=== PATIENT | male | born 1950 | race Asian ===

== ENCOUNTER 2018-08-13 14:54 | Emergency (ER) | payer BC ==
[~2018-08-13] VITALS: Ht 172.7 cm; Wt 81.6 kg
[2018-08-13 14:59] VITALS: BP 132/71
[2018-08-13] MEDS ORDERED: Ketorolac 30mg Inj IV ONE (15:00)
--- NOTE | 2018-08-13 15:00 | NUR ---
ED Nurse Note: PT BROUGHT IN BY AMBULANCE DUE TO LLQ ABD. PAIN SINCE THIS MORNING. PT WAS SEEN AT [facility] TODAY AND WAS GIVEN PRESCRIPTIONS. PT STATES HIS LAST BOWLE MOVEMENT WAS YESTERDAY AFTERNOON BUT SCANTY. PT IS AAO X4, AMBULATORY. VSS.
--- NOTE | 2018-08-13 15:05 | NUR ---
HAND-OFF: Report given to
[2018-08-13] MEDS ORDERED: ZOFRAN4 MG ORAL (15:18)
[2018-08-13] MEDS ORDERED: ASPIRIN EC81 MG ORAL (15:18)
[2018-08-13] MEDS ORDERED: ATORVASTATIN CA80 MG ORAL (15:18)
[2018-08-13] MEDS ORDERED: IBUPROFEN600 MG ORAL (15:18)
[2018-08-13 15:33] LABS: BASOPHILS % (AUTO) 0.4 % (0.0-2.0); HEMATOCRIT 41.4 % (42.0-52.0); HEMOGLOBIN 14.2 G/DL (14.2-18.0); LYMPHOCYTES % (AUTO) 9.8 % (20.0-45.0); MEAN CORPUSCULAR VOLUME 89 FL (80-99); NEUTROPHILS % (AUTO) 83.8 % (45.0-75.0); PLATELET COUNT 164 K/UL (150-450); RED BLOOD COUNT 4.65 M/UL (4.70-6.10); RED CELL DISTRIBUTION WIDTH 10.7 % (11.6-14.8); WHITE BLOOD COUNT 9.8 K/UL (4.8-10.8)
[2018-08-13 15:50] LABS: ANION GAP 7 mmol/L (5-15); BLOOD UREA NITROGEN 18 mg/dL (7-18); CALCIUM 8.5 MG/DL (8.5-10.1); CARBON DIOXIDE 28 MMOL/L (21-32); CHLORIDE 100 MMOL/L (98-107); CREATININE 1.2 MG/DL (0.55-1.30); POTASSIUM 3.7 MMOL/L (3.5-5.1); SODIUM 135 MMOL/L (136-145)
[2018-08-13 15:54] LABS: ALANINE AMINOTRANSFERASE 59 U/L (12-78); ALBUMIN 3.7 G/DL (3.4-5.0); ALBUMIN/GLOBULIN RATIO 1.2 (1.0-2.7); ALKALINE PHOSPHATASE 66 U/L (46-116); ASPARTATE AMINO TRANSFERASE 67 U/L (15-37); BILIRUBIN,TOTAL 0.9 MG/DL (0.2-1.0)
--- NOTE | 2018-08-13 16:18 | Emergency Room Report ---
History of Present Illness General Chief Complaint: Abdominal Pain Source: Patient, Medical Record Present Illness HPI Patient presents with complaints of left lower abdominal pain some radiation to the upper abdominal area reports that he was in a different hospital recently with similar pain It had improved however was unable to get his medications and the pain has now returned patient reports that many years ago he had a similar episode with nausea vomiting had gone to an initial hospital and after return visit was found to have a heart attack Denies any dysuria frequency Patient does feel that he is constipated Allergies: Coded Allergies: IODINE (Verified Allergy, Unknown, 08/13/18) Patient History Past Medical History: see triage record Pertinent Family History: none Reviewed Nursing Documentation: PMH: Agreed; PSxH: Agreed Nursing Documentation-PMH Past Medical History: No History, Except For Hx Cardiac Problems: Yes - Stent in 2008 Review of Systems All Other Systems: negative except mentioned in HPI Physical Exam Vital Signs Date Time Temp Pulse Resp B/P (MAP) Pulse Ox O2 Delivery O2 Flow Rate FiO2 08/13/18 14:50 97.9 77 20 120/73 (89) 100 Room Air Sp02 EP Interpretation: reviewed, normal General Appearance: well appearing, no apparent distress Head: normocephalic, atraumatic Eyes: bilateral eye PERRL, bilateral eye EOMI ENT: hearing grossly normal, normal pharynx, TMs + canals normal, uvula midline Neck: full range of motion, supple, no meningismus, no bony tend Respiratory: lungs clear, normal breath sounds, no rhonchi, no respiratory distress, no retraction, no accessory muscle use Cardiovascular #1: normal peripheral pulses, regular rate, rhythm, no edema, no gallop, no JVD, no murmur Gastrointestinal: normal bowel sounds, non tender - Likely points to the left lower abdominal area, soft, no mass, no organomegaly, non-distended, no guarding , no hernia, no pulsatile mass, no rebound Genitourinary: no CVA tenderness Musculoskeletal: normal inspection Neurologic: oriented x3, responsive, machine i coremaker III-XII nml as tested, motor strength/ tone normal, sensory intact Psychiatric: mood/affect normal Skin: normal color, no rash, warm/dry, palpation normal Lymphatic: normal inspection, no adenopathy Medical Decision Making Labs Test 08/13/18 15:10 08/13/18 16:40 White Blood Count 9.8 K/UL (4.8-10.8) Red Blood Count 4.65 M/UL (4.70-6.10) Hemoglobin 14.2 G/DL (14.2-18.0) Hematocrit 41.4 % (42.0-52.0) Mean Corpuscular Volume 89 FL (80-99) Mean Corpuscular Hemoglobin 30.4 PG (27.0-31.0) Mean Corpuscular Hemoglobin Concent 34.2 G/DL (32.0-36.0) Red Cell Distribution Width 10.7 % (11.6-14.8) Platelet Count 164 K/UL (150-450) Mean Platelet Volume 6.4 FL (6.5-10.1) Neutrophils (%) (Auto) 83.8 % (45.0-75.0) Lymphocytes (%) (Auto) 9.8 % (20.0-45.0) Monocytes (%) (Auto) 6.0 % (1.0-10.0) Eosinophils (%) (Auto) 0.0 % (0.0-3.0) Basophils (%) (Auto) 0.4 % (0.0-2.0) Sodium Level 135 MMOL/L (136-145) Potassium Level 3.7 MMOL/L (3.5-5.1) Chloride Level 100 MMOL/L (98-107) Carbon Dioxide Level 28 MMOL/L (21-32) Anion Gap 7 mmol/L (5-15) Blood Urea Nitrogen 18 mg/dL (7-18) Creatinine 1.2 MG/DL (0.55-1.30) Estimat Glomerular Filtration Rate > 60 mL/min (>60) Glucose Level 129 MG/DL (74-106) Calcium Level 8.5 MG/DL (8.5-10.1) Total Bilirubin 0.9 MG/DL (0.2-1.0) Aspartate Amino Transf (AST/SGOT) 67 U/L (15-37) Alanine Aminotransferase (ALT/SGPT) 59 U/L (12-78) Alkaline Phosphatase 66 U/L (46-116) Total Protein 6.8 G/DL (6.4-8.2) Albumin 3.7 G/DL (3.4-5.0) Globulin 3.1 g/dL Albumin/Globulin Ratio 1.2 (1.0-2.7) Lipase 88 U/L (73-393) Urine Color Pale yellow Urine Appearance Clear Urine pH 6 (4.5-8.0) Urine Specific Nichols 1.015 (1.005-1.035) Urine Protein 2+ (NEGATIVE) Urine Glucose (UA) Negative (NEGATIVE) Urine Ketones 1+ (NEGATIVE) Urine Blood 2+ (NEGATIVE) Urine Nitrite Negative (NEGATIVE) Urine Bilirubin Negative (NEGATIVE) Urine Urobilinogen Normal MG/DL (0.0-1.0) Urine Leukocyte Esterase Negative (NEGATIVE) Urine RBC 0-2 /HPF (0 - 0) Urine WBC 0 /HPF (0 - 0) Urine Squamous Epithelial Cells Occasional /LPF Urine Bacteria Occasional /HPF (NONE) Urine Mucus Few /LPF (NONE/OCC) CT/MRI/US Diagnostic Results CT/MRI/US Diagnostic Results : Impression ct abd pelvis: IMPRESSION: No acute findings. Atherosclerotic vascular disease. Mild thickening of the wall the urinary bladder. Correlate for cystitis. Last Vital Signs Date Time Temp Pulse Resp B/P (MAP) Pulse Ox O2 Delivery O2 Flow Rate FiO2 08/13/18 15:36 97.9 08/13/18 14:59 71 16 Room Air 08/13/18 14:59 132/71 100 Scripts Docusate Sodium* (COLACE*) 100 Mg Capsule 100 MG ORAL THREE TIMES A DAY, #12 CAP Prov: Agnes Bond DO 08/13/18 Famotidine (PEPCID AC) 20 Mg Tablet 20 MG PO DAILY, #12 TAB Prov: Agnes Bond DO 08/13/18 Referrals: [facility] (PCP) Agnes Bond DO Aug 13, 2018 16:18
--- NOTE | 2018-08-13 16:23 | Diagnostic Imaging Report ---
Indication: Abdominal pain Technique: Continuous helical transaxial imaging of the abdomen and pelvis was obtained from the lung bases to the pubic symphysis. No intravenous contrast was administered. Coronal 2-D reformats were also obtained. Automatic Exposure Control was utilized. Total Dose length Product (DLP): 508.[address] Dose Index Volume (CTDIvol): 9.94 mGy Comparison: none Findings: Bowel gas pattern is nonobstructive. The appendix is normal. No renal stones or hydronephrosis demonstrated. The gallbladder is unremarkable. There is a calcification in the liver which is nonspecific. No ascites demonstrated. Prostate calcification noted. Mild thickening of the urinary bladder wall demonstrated. IMPRESSION: No acute findings. Atherosclerotic vascular disease. Mild thickening of the wall the urinary bladder. Correlate for cystitis. The CT scanner at [facility] is accredited by the [employer] and the scans are performed using dose optimization techniques as appropriate to a performed exam including Automatic Exposure control.
[2018-08-13] MEDS ORDERED: COLACE100 MG ORAL (16:36)
[2018-08-13] MEDS ORDERED: PEPCID AC20 M2 PO (16:36)
[2018-08-13 17:15] VITALS: BP 122/72
[2018-08-13 17:28] LABS: APPEARANCE,URINE CLEAR; BILIRUBIN, URINE NEGATIVE (NEGATIVE); COLOR,URINE PALE YELLOW; GLUCOSE, URINE (UA) NEGATIVE (NEGATIVE); KETONES,URINE 1+ (NEGATIVE); LEUKOCYTE ESTERASE ,URINE NEGATIVE (NEGATIVE); NITRITE,URINE NEGATIVE (NEGATIVE); PH,URINE 6 (4.5-8.0); PROTEIN,URINE 2+ (NEGATIVE); UROBILINOGEN,URINE NORMAL MG/DL (0.0-1.0)
[2018-08-13 17:38] VITALS: BP 134/80
--- NOTE | 2018-08-13 17:39 | NUR ---
ER DISCHARGE NOTE: Patient is cleared to be discharged per ERMD, pt is aox4, on room air, with stable vital signs. pt was given dc and prescription instructions, pt was able to verbalize understanding, pt id band and iv site removed without complications. pt is able to ambulate with steady gait. pt took all belongings.
--- NOTE | 2018-08-14 15:27 | Cardiology Report ---
APPROVED REPORT EKG Measurement Heart [id number] Normal sinus rhythm Anteroseptal infarct, age undetermined Abnormal ECG
== END 2018-08-13 17:05 | disposition home or self-care (01) ==
LOC: EDBD 14:54 → EMR 15:15 → CANBEDREQ 16:35 → EMR 17:05
DX: R10.32 Left lower quadrant pain (principal); I25.2 Old myocardial infarction; Z95.0 Presence of cardiac pacemaker; Z91.041 Radiographic dye allergy status
CPT/HCPCS: 36415; 74176; 80053; 81003; 83690; 85025; 93005; 96361; 96374; 96375; 99284; J1885; J2405

== ENCOUNTER 2020-01-15 12:08 | Emergency (ER) | payer BC ==
[~2020-01-15] VITALS: Ht 175.3 cm; Wt 72.6 kg
[~2020-01-15 12:08] MED LIST: ASPIRIN EC81 MG ORAL; ATORVASTATIN CA80 MG ORAL; COLACE100 MG ORAL; IBUPROFEN600 MG ORAL; PEPCID AC20 M2 PO; ZOFRAN4 MG ORAL
--- NOTE | 2020-01-15 12:20 | NUR ---
came to er complaints of chest pain which radiates to left arm just like crushing hx of stent palcement
[2020-01-15] MEDS ORDERED: Heparin 5000 units/ml inj ONE (12:29)
[2020-01-15] MEDS ORDERED: Heparin 1000 units/ml 1ml Vial INJ ONE (12:30)
[2020-01-15] MEDS ORDERED: Morphine Sulfate 4mg/ml Inj (IV USE ONLY) IVP ONE (12:30)
[2020-01-15] MEDS ORDERED: Heparin 5000 units/ml inj SUBQ ONE (12:30)
[2020-01-15 12:32] VITALS: BP 130/80
--- NOTE | 2020-01-15 12:35 | NUR ---
meds given as orderd iv intact patient is to be transferd to [facility] er as stemi
[2020-01-15 12:38] VITALS: BP 139/92
[2020-01-15 12:38] LABS: BASOPHILS % (AUTO) 1.1 % (0.0-2.0); EOSINOPHILS % (AUTO) 1.1 % (0.0-3.0); HEMATOCRIT 47.4 % (42.0-52.0); HEMOGLOBIN 15.5 G/DL (14.2-18.0); LYMPHOCYTES % (AUTO) 42.9 % (20.0-45.0); MEAN CORPUSCULAR VOLUME 94 FL (80-99); MONOCYTES % (AUTO) 6.1 % (1.0-10.0); NEUTROPHILS % (AUTO) 48.9 % (45.0-75.0); PLATELET COUNT 219 K/UL (150-450); RED BLOOD COUNT 5.02 M/UL (4.70-6.10); RED CELL DISTRIBUTION WIDTH 11.9 % (11.6-14.8); WHITE BLOOD COUNT 6.1 K/UL (4.8-10.8)
--- NOTE | 2020-01-15 12:41 | Emergency Room Report ---
History of Present Illness General Chief Complaint: Chest Pain Source: Patient Present Illness HPI This patient states that about an hour prior to arrival he developed severe left-sided chest pain that is pressure-like. He does have a history of AK. He has 2 stents previously. The last one being 2 years ago. He states this was at [facility]. He currently is not taking any medications. He denies recent illness. Denies fever or chills. He denies cough or congestion. He states this feels exactly the same as his previous myocardial infarction. Allergies: Coded Allergies: IODINE (Verified Allergy, Unknown, 08/13/18) COVID-19 Screening Contact w/high risk pt: No Experienced COVID-19 symptoms?: No COVID-19 Testing performed ARCADE TECHNICIAN: No Patient History Past Medical History: see triage record, HTN, AK, CAD Past Surgical History: other - Stentsx2 Social History: Denies: smoking, alcohol use, drug use Reviewed Nursing Documentation: PMH: Agreed; PSxH: Agreed Nursing Documentation-PMH Hx Cardiac Problems: Yes - stentx 2 Review of Systems All Other Systems: negative except mentioned in HPI Physical Exam Vital Signs Date Time Temp Pulse Resp B/P (MAP) Pulse Ox O2 Delivery O2 Flow Rate FiO2 01/15/20 12:17 97.0 82 18 130/80 (97) 98 Nasal Cannula Sp02 EP Interpretation: reviewed, normal General Appearance: no apparent distress, alert, GCS 15, non-toxic Head: normocephalic, atraumatic Eyes: bilateral eye normal inspection, bilateral eye PERRL ENT: hearing grossly normal, normal pharynx, no angioedema, normal voice Neck: full range of motion, supple/symm/no masses Respiratory: chest non-tender, lungs clear, normal breath sounds, no respiratory distress, no retraction, no accessory muscle use, speaking full sentences Cardiovascular #1: regular rate, rhythm, no edema Gastrointestinal: normal bowel sounds, non tender, soft, non-distended, no guarding, no rebound Rectal: deferred Musculoskeletal: normal inspection, back normal, normal range of motion, non- tender Neurologic: alert, motor strength/tone normal, oriented x3, sensory intact, responsive, speech normal Psychiatric: judgement/insight normal, memory normal, mood/affect normal, no suicidal/homicidal ideation Skin: no rash, diaphoresis Medical Decision Making Diagnostic Impression: Primary Impression: STEMI (ST elevation myocardial infarction) ER Course This patient is found to have an inferior STEMI on EKG. [facility] is the STEMI receiving hospital contracted with [facility]. He was given aspirin, morphine and a heparin bolus and transferred to [facility] by ACLS for higher level of care and for the need for emergency PCI. I did not give nitroglycerin for concern of hypotension given that the STEMI is inferior and therefore is likely a right-sided AK. The patient is transferred to [facility] for higher level of care. This patient is critically ill. This patient required complex medical decision-making, aggressive intervention, extensive laboratory workup and monitoring. Critical care time: 30 minutes. Laboratory Tests Test 01/15/20 12:25 White Blood Count 6.1 K/UL (4.8-10.8) Red Blood Count 5.02 M/UL (4.70-6.10) Hemoglobin 15.5 G/DL (14.2-18.0) Hematocrit 47.4 % (42.0-52.0) Mean Corpuscular Volume 94 FL (80-99) Mean Corpuscular Hemoglobin 30.9 PG (27.0-31.0) Mean Corpuscular Hemoglobin Concent 32.7 G/DL (32.0-36.0) Red Cell Distribution Width 11.9 % (11.6-14.8) Platelet Count 219 K/UL (150-450) Mean Platelet Volume 7.4 FL (6.5-10.1) Neutrophils (%) (Auto) 48.9 % (45.0-75.0) Lymphocytes (%) (Auto) 42.9 % (20.0-45.0) Monocytes (%) (Auto) 6.1 % (1.0-10.0) Eosinophils (%) (Auto) 1.1 % (0.0-3.0) Basophils (%) (Auto) 1.1 % (0.0-2.0) Prothrombin Time 10.9 SEC (9.30-11.50) Prothrombin Time INR 1.0 (0.9-1.1) Activated Partial Thromboplast Time 27 SEC (23-33) Sodium Level 136 MMOL/L (136-145) Potassium Level 3.3 MMOL/L (3.5-5.1) L Chloride Level 101 MMOL/L (98-107) Carbon Dioxide Level 23 MMOL/L (21-32) Anion Gap 12 mmol/L (5-15) Blood Urea Nitrogen 13 mg/dL (7-18) Creatinine 1.2 MG/DL (0.55-1.30) Estimated Glomerular Filtration Rate 59.9 mL/min (>60) Glucose Level 147 MG/DL (74-106) H Calcium Level 8.5 MG/DL (8.5-10.1) Total Bilirubin 0.7 MG/DL (0.2-1.0) Aspartate Amino Transferase (AST) 21 U/L (15-37) Alanine Aminotransferase (ALT) 31 U/L (12-78) Alkaline Phosphatase 68 U/L (46-116) Troponin I 0.032 ng/mL (0.000-0.056) Total Protein 7.3 G/DL (6.4-8.2) Albumin 3.6 G/DL (3.4-5.0) Globulin 3.7 g/dL Albumin/Globulin Ratio 1.0 (1.0-2.7) EKG Diagnostic Results Rate: normal Rhythm: NSR ST Segments: other - ST elevations in II, III and aVF with reciprocal changes in V1, V2, V3 Rhythm Strip Diag. Results EP Interpretation: yes Rate: 70's Rhythm: NSR, no PVC's, no ectopy Last Vital Signs Date Time Temp Pulse Resp B/P (MAP) Pulse Ox O2 Delivery O2 Flow Rate FiO2 01/15/20 12:17 97.0 82 18 130/80 (97) 98 Nasal Cannula Status: improved Disposition: SHORT-TERM HOSP Condition: Critical Patsy Hameed DO Jan 15, 2020 12:41
--- NOTE | 2020-01-15 12:42 | NUR ---
report given to asia ron at [facility] patient will be transferd to [facility] by ra 61 o2 on continues
[2020-01-15 12:44] LABS: CALCIUM 8.5 MG/DL (8.5-10.1); CREATININE 1.2 MG/DL (0.55-1.30); POTASSIUM 3.3 MMOL/L (3.5-5.1)
[2020-01-15 12:45] VITALS: BP 130/80
[2020-01-15 12:49] LABS: ALBUMIN 3.6 G/DL (3.4-5.0); BILIRUBIN,TOTAL 0.7 MG/DL (0.2-1.0)
--- NOTE | 2020-01-15 13:09 | NUR ---
SPOKE TO asia at [facility] er told her all the paperwork and lab results zepeda been faxed to [facility] er
== END 2020-01-15 12:45 | disposition short-term general hospital (02) ==
LOC: EMR 12:35
DX: I21.19 ST elevation (STEMI) myocardial infarction involving other coronary artery of inferior wall (principal); I10 Essential (primary) hypertension; I25.2 Old myocardial infarction; I25.10 Atherosclerotic heart disease of native coronary artery without angina pectoris; Z95.828 Presence of other vascular implants and grafts
CPT/HCPCS: 36415; 80053; 84484; 85025; 85610; 85730; 93005; 96372; 96374; 99285; J1644; J2270